=== PATIENT | male | born 1960 ===

== ENCOUNTER 2021-04-09 13:00 | Inpatient (IN) ==
[2021-05-21] MEDS ORDERED: Lactated Ringers 1000 ml BAG 1,000 ML IV SCH (06:00)
[2021-05-21] MEDS ORDERED: Buffered Lidocaine 1% SYRIN 1 ml INTRADERM ONE (06:00)
[2021-05-21] MEDS ORDERED: Midazolam 5 mg/5 ml VIAL 1 mg/ml 5 ml VIAL (5 mg) ONE (07:14)
[2021-05-21] MEDS ORDERED: fentaNYL 100 mcg/2 ml 50 MCG/ML VIAL ONE (07:14)
[2021-05-21] MEDS ORDERED: Phenylephrine 40 mcg/mL 10mL (400mcg) SYRINGE ONE (07:15)
[2021-05-21] MEDS ORDERED: Dexamethasone IV 4 MG/ML VIAL 1 ml VIAL ONE (07:15)
[2021-05-21] MEDS ORDERED: Ondansetron 4 mg VIAL 2 MG/ML 2 ml VIAL ONE (07:15)
[2021-05-21] MEDS ORDERED: Propofol 10 MG/ML 20 ML BTL ONE (07:15)
[2021-05-21] MEDS ORDERED: Sterile Water for Inj 10 ML ONE (07:15)
[2021-05-21] MEDS ORDERED: EPHEDrine (Pressors) 50 MG/ML VIAL ONE ×2 (07:15→15:07)
[2021-05-21] MEDS ORDERED: Bupivacaine 0.5% SDV PF 30ML VIAL ONE ×2 (07:15→15:01)
[2021-05-21] MEDS ORDERED: Lidocaine 2% PF 5 ML VIAL ONE (07:15)
[2021-05-21] MEDS ORDERED: HYDROmorphone 0.5 MG/0.5 ML SYRINGE ONE (08:25)
[2021-05-21] MEDS ORDERED: ceFAZolin 2 GM PREMIX 2 GM/50 ML BAG ONE (12:16)
[2021-05-21] MEDS ORDERED: Ondansetron ODT 4 mg TAB 4 MG TAB PO PRN (15:09)
[2021-05-21] MEDS ORDERED: diPHENhydraMINE 25 mg TAB PO PRN (15:09)
[2021-05-21] MEDS ORDERED: diPHENhydraMINE IV 50 MG/ML 1 ml VIAL (BENADRYL) IV PRN (15:09)
[2021-05-21] MEDS ORDERED: Lactulose 30 ml UDC PO PRN (15:09)
[2021-05-21] MEDS ORDERED: Ondansetron 4 mg VIAL 2 MG/ML 2 ml VIAL IV PRN (15:09)
[2021-05-21] MEDS ORDERED: Morphine 2 MG/ML SYRINGE IV PRN (15:09)
[2021-05-21] MEDS ORDERED: Magnesium Hydroxide LIQ 30 ML UDC PO PRN (15:09)
[2021-05-21] MEDS ORDERED: Midazolam 2 mg/2 ml VIAL 1 mg/ml 2 ml VIAL (2 mg) ONE (15:10)
[2021-05-21] MEDS: Lactated Ringers 1000 ml BAG 1,000 ML IV SCH (18:24)
[2021-05-21] MEDS: Magnesium Hydroxide LIQ 30 ML UDC PO SCH (20:45)
[2021-05-21] MEDS: ceFAZolin 1 GM ADVAN 1 GM in NS 0.9% 50 ML 50 ML IVPB SCH (22:00)
[2021-05-22] MEDS: Lactated Ringers 1000 ml BAG 1,000 ML IV SCH (06:14)
[2021-05-22] MEDS: ceFAZolin 1 GM ADVAN 1 GM in NS 0.9% 50 ML 50 ML IVPB SCH (06:17)
[2021-05-22 06:32] LABS: Hematocrit 30 % (42-52); Hemoglobin 10.5 g/dL (14.0-18.0); Mean Platelet Volume 6.6 fL (7.4-10.4); Platelet Count 294 10^3/uL (150-450)
[2021-05-22 06:45] LABS: Calcium 8.4 mg/dL (8.6-10.3); eGFR CKD-EPI 56.2 (>60)
[2021-05-22] MEDS: Magnesium Hydroxide LIQ 30 ML UDC PO SCH (08:18)
[2021-05-22] MEDS ORDERED: Vitamin THERAPEUTIC TAB PO SCH (09:00)
[2021-05-22 11:37] VITALS: BP 108/66
== END 2021-05-22 15:00 | disposition home or self-care (01) | DRG 301 ==
LOC: INTOOBSV 05-21 11:58 → AA 05-21 11:58 → SSU 05-21 15:09
PROVIDERS: ADMIT Orthopaedic Surgery Adult Reconstructive Orthopaedic Surgery; ATTEND Orthopaedic Surgery Adult Reconstructive Orthopaedic Surgery